=== PATIENT | female | born 1950 | race Caucasian/White ===

== ENCOUNTER 2020-10-16 06:09 | Observation (INO) ==
[~2020-10-16 06:09] MED LIST: Buffered Lidocaine 1% SYRIN 1 ml INTRADERM ONE; Lactated Ringers 1000 ml BAG 1,000 ML IV SCH; Ondansetron ODT 4 mg TAB 4 MG TAB SL PRN; ceFAZolin 2 GM PREMIX 2 GM/50 ML BAG IVPB ONE
[2020-10-16] MEDS ORDERED: ceFAZolin 2 GM PREMIX 2 GM/50 ML BAG ONE (06:39)
[2020-10-16] MEDS ORDERED: Ondansetron ODT 4 mg TAB 4 MG TAB ONE (06:39)
[2020-10-16] MEDS ORDERED: Lidocaine 2% PF 5 ML VIAL ONE (07:49)
[2020-10-16] MEDS ORDERED: Propofol 10 MG/ML 20 ML BTL ONE ×2 (07:53→09:31)
[2020-10-16] MEDS ORDERED: Rocuronium 50 mg VIAL 10 mg/ml 5 ml VIAL (50 mg) ONE ×2 (07:54→11:53)
[2020-10-16] MEDS ORDERED: fentaNYL 250 mcg/5 ml 50 MCG/ML 5 ml VIAL (250 MCG) ONE (07:57)
[2020-10-16] MEDS ORDERED: Midazolam 2 mg/2 ml VIAL 1 mg/ml 2 ml VIAL (2 mg) ONE (07:58)
[2020-10-16] MEDS ORDERED: Heparin 5000 UNITS/ML 1 mL VIAL ONE (08:10)
[2020-10-16] MEDS ORDERED: Bupivacaine 0.5% SDV PF 30ML VIAL ONE (08:10)
[2020-10-16] MEDS ORDERED: Chlorhexidine MOUTHWASH 0.12% 15 ML UDC ONE (08:10)
[2020-10-16] MEDS ORDERED: Lidocaine 1% w EPI 1:100,000 MDV 20 ML VIAL ONE (08:10)
[2020-10-16] MEDS ORDERED: Phenylephrine 40 mcg/mL 10mL (400mcg) SYRINGE ONE (09:12)
[2020-10-16] MEDS ORDERED: EPHEDrine (Pressors) 50 MG/ML VIAL ONE (09:24)
[2020-10-16] MEDS ORDERED: Ondansetron 4 mg VIAL 2 MG/ML 2 ml VIAL ONE (12:20)
[2020-10-16] MEDS ORDERED: ceFAZolin VIAL VIAL ONE (12:23)
[2020-10-16] MEDS ORDERED: HYDROmorphone 1 MG/1 ML SYRINGE IV PRN (12:32)
[2020-10-16] MEDS ORDERED: Naloxone 0.4 mg VIAL 0.4 mg/ml 1 ml VIAL IV PRN (12:32)
[2020-10-16] MEDS ORDERED: Ondansetron 4 mg VIAL 2 MG/ML 2 ml VIAL IV PRN (12:32)
[2020-10-16] MEDS ORDERED: Famotidine IV 10 MG/ML 2 ml VIAL (20 mg) IV SLOW PU ONE (15:09)
[2020-10-16] MEDS ORDERED: Famotidine IV 10 MG/ML 2 ml VIAL (20 mg) ONE (15:11)
[2020-10-16] MEDS ORDERED: Metoclopramide 5 MG/ML VIAL (10 mg) ONE (17:00)
[2020-10-16] MEDS ORDERED: Metoclopramide 5 MG/ML VIAL (10 mg) IV SLOW PU ONE (17:01)
[2020-10-16] MEDS ORDERED: oxyCODONE/Acetamin 5/325 mg TAB PO PRN (19:01)
[2020-10-16] MEDS ORDERED: Cholecalciferol (VIT D3) 1,000 unit TAB PO SCH (21:00)
[2020-10-16] MEDS ORDERED: Aspirin EC 81 mg TAB.EC (enteric coated) PO SCH (21:00)
[2020-10-16] MEDS ORDERED: Insulin GLARGINE 100 un/ml 10 ml VIAL SUBCUT SCH (21:00)
[2020-10-17 11:41] VITALS: BP 124/49
== END 2020-10-17 12:30 | disposition home or self-care (01) ==
LOC: OR 06:09 → SSU 06:09
PROVIDERS: ADMIT Obstetrics & Gynecology; ATTEND Obstetrics & Gynecology